=== PATIENT | female | born 1975 | race Caucasian/White ===

== ENCOUNTER 2020-10-20 07:46 | Outpatient (CLI) | payer BC ==
[2020-10-20] MEDS ORDERED: LIDOCAINE 1%, 20ML ONE (08:00)
[2020-10-20] MEDS ORDERED: LIDOCAINE 1%-EPI 1:100K, 20ML ONE (08:00)
[2020-10-20] MEDS ORDERED: SODIUM BICARBONATE 4.2%, 5ML ONE (08:00)
== END 2020-10-20 23:59 | disposition home or self-care (01) ==
LOC: CFH 07:46
PROVIDERS: ATTEND Radiology Diagnostic Radiology
DX: N63.15 Unspecified lump in the right breast, overlapping quadrants (principal)
CPT/HCPCS: 19083; 77065; 88305; J3490